=== PATIENT | female | born 1960 | race Caucasian/White ===

== ENCOUNTER 2021-06-08 12:20 | Inpatient (IN) | payer OTHER ==
--- NOTE | 2021-06-08 13:41 | RAD REPORT ---
EXAM DESCRIPTION: CT - Head Brain Wo Cont - 06/08/2021 1:24 pm CLINICAL HISTORY: Alteration of awareness/confusion COMPARISON: None TECHNIQUE: Computed axial tomography of the head was obtained. IV contrast was not requested. All CT scans are performed using dose optimization technique as appropriate and may include automated exposure control or mA/KV adjustment according to patient size. FINDINGS: An intracranial bleed is not seen . The ventricles are normal in caliber. No extra-axial fluid collection is noted. 3 millimeter low-density area right caudate. 5 millimeter low-density area left domitila Mild to low-density areas within periventricular, deep and subcortical white matter likely represent ischemic changes secondary to small vessel disease. Fluid within the sinuses/ mastoids is not seen. IMPRESSION: 3 mm low-density area right caudate likely old lacunar infarction. It has more of a senior sales associate darren than acute appearance. 5 millimeter low-density area left domitila has the appearance of an old lacunar infarction If patient continues have symptoms to suggest acute intracranial pathology then MRI brain would be re commended.
--- NOTE | 2021-06-08 15:42 | ER ---
Nurse's Notes [facility] Name: Tammie Cassidy Age: 60 yrs Sex: Female : 1960 Arrival Date: 06/08/2021 Time: 12:21 Bed 14 Private MD: Keturah Eaton Diagnosis: Lacunar infarct right caudate and left domitila, weakness left upper and lower extremity, greater on the upper extremity Presentation: 06/08 12:52 Chief complaint: Patient states: L sided weakness that began 3 days ago. Coronavirus ss screen: Client denies travel out of the [place] in the last 14 days. Ebola Screen: Patient denies exposure to infectious person. Patient denies travel to an Ebola-affected area in the 21 days before illness onset. Initial Sepsis Screen: Does the patient meet any 2 criteria? No. Patient's initial sepsis screen is negative. Does the patient have a suspected source of infection? No. Patient's initial sepsis screen is negative. Risk Assessment: Do you want to hurt yourself or someone else? Patient reports no desire to harm self or others. Onset of symptoms was May 2021. 12:52 Method Of Arrival: Wheelchair ss 12:52 Acuity: JHONY 2 ss Triage Assessment: 19:34 General: Appears in no apparent distress. comfortable. mr2 Historical: - Allergies: 12:57 Rocephin; ss - PMHx: 12:57 Hypertensive disorder; ss - Immunization history:: Client reports receiving the 1st dose of the Covid vaccine. - Social history:: Smoking status: Patient reports the use of cigarette tobacco products, smokes one pack cigarettes per day. Screenin:34 Abuse screen: Denies threats or abuse. Nutritional screening: No deficits noted. vg1 Tuberculosis screening: No symptoms or risk factors identified. Fall Risk No fall in past 12 months (0 pts). No secondary diagnosis (0 pts). IV access (20 points). Ambulatory Aid- None/Bed Rest/Nurse Assist (0 pts). Gait- Normal/Bed Rest/Wheelchair (0 pts) Mental Status- Oriented to own ability (0 pts). Total Lockwood Fall Scale indicates No Risk (0-24 pts). Assessment: 16:00 General: Appears in no apparent distress. uncomfortable, Behavior is calm, cooperative. vg1 Pain: Complains of pain in head and neck Pain currently is 8 out of 10 on a pain scale. Neuro: Level of Consciousness is awake, alert, obeys commands, Oriented to person, place, time, situation, Reports headache photophobia Denies weakness blurred vision dizziness, numbness. Cardiovascular: Patient's skin is warm and dry. Respiratory: Airway is patent Respiratory effort is even, unlabored. GI: Patient currently denies diarrhea, nausea, vomiting. : No signs and/or symptoms were reported regarding the genitourinary system. EENT: No signs and/or symptoms were reported regarding the EENT system. Derm: Skin is intact, is healthy with good turgor. Musculoskeletal: Circulation, motion, and sensation intact. 16:29 Reassessment: received VO from Dr Park to administer Points 10 mg PO x1. vg1 17:30 Reassessment: Patient appears in no apparent distress at this time. No changes from vg1 previously documented assessment. Patient and/or family updated on plan of care and expected duration. Pain level reassessed. Patient is alert, oriented x 3, equal unlabored respirations, skin warm/dry/pink. 17:50 Reassessment: Pt c/o of pain neck pain 04/22, Provider notified. vg1 18:04 Reassessment: Received VO from DR Park to administer Morphine 4 mg IVP x1 and Zofran vg1 IVP x1. Vital Signs: 12:52 Pulse 71; Temp 97.7(TE); Pulse Ox 99% ; ss 12:58 BP 219 / 104; ss 12:59 Resp 16; Weight 81.65 kg; Height 5 ft. 5 in. (165.10 cm); ss 16:30 BP 214 / 96; Pulse 59; Resp 16; Pulse Ox 100% ; vg1 16:51 BP 241 / 111; Pulse 55; Resp 20; Pulse Ox 100% ; mh5 18:05 BP 207 / 118; Pulse 55; Resp 15; Pulse Ox 100% ; vg1 18:30 BP 206 / 108; Pulse 58; Resp 20; Pulse Ox 99% ; vg1 19:31 BP 174 / 93; Pulse 57; Resp 17; Pulse Ox 98% on R/A; mr2 12:59 Body Mass Index 29.95 (81.65 kg, 165.10 cm) ED Course: 12:21 Patient arrived in ED. as 12:21 Keturah Eaton is Private Physician. as 12:57 Triage completed. ss 12:57 Arm band placed on right wrist. ss 13:23 CT Head Brain wo Cont In Process Unspecified. EDMS 15:00 Bora Park MD is Attending Physician. kdr 15:40 Ubaldo Owens MD is Hospitalizing Provider. kdr 15:47 Rhiannon Fritz RN is Primary Nurse. vg1 16:20 Initial lab(s) drawn, by me, sent to lab. Inserted saline lock: 20 gauge in right vg1 antecubital area, using aseptic technique. Blood collected. 16:34 Patient has correct armband on for positive identification. Placed in gown. Bed in low vg1 position. Call light in reach. Side rails up X 1. Adult w/ patient. 16:34 No provider procedures requiring assistance completed. vg1 16:49 Chem 7 Sent. mh5 16:50 CBC with Diff Sent. mh5 17:15 Head angio In Process Unspecified. EDMS 19:14 Report given to MELVIN RODRIGUEZ. vg1 21:38 Patient admitted, IV remains in place. mr2 Administered Medications: 16:08 Drug: Aspirin 81 mg Route: PO; vg1 18:40 Follow up: Response: No adverse reaction vg1 16:08 Drug: PlaVIX (clopidogrel) 75 mg Route: PO; vg1 18:40 Follow up: Response: No adverse reaction vg1 16:08 Not Given (not available in hospital per pharmacyy): lovastatin 40 mg PO once vg1 16:08 Drug: cloNIDine 0.1 mg Route: PO; vg1 18:40 Follow up: Response: Blood pressure is lowered vg1 16:09 Drug: Lipitor (atorvastatin) 20 mg Route: PO; vg1 18:40 Follow up: Response: Blood pressure is lowered vg1 16:31 Drug: Points (HYDROcodone-acetaminophen) 10 mg-325 mg 1 tabs Route: PO; vg1 18:39 Follow up: Response: No adverse reaction; No change in condition vg1 18:40 Drug: Zofran (Ondansetron) 4 mg Route: IVP; Site: right antecubital; vg1 18:42 Drug: morphine 4 mg Route: IVP; Site: right antecubital; vg1 Outcome: 15:42 Decision to Hospitalize by Provider. kdr 21:38 Admitted to Med/surg mr2 21:38 Condition: stable 21:38 Instructed on the need for admit. 22:06 Patient left the ED. mr2 Signatures: Dispatcher [employer] EDMS Bora Park MD MD kdr Martinez, Amelia as Smirch, Shelby, RN RN ss Martinez, Maria Rhiannon Waggoner RN RN vg1 Melvin Orozco RN RN mr2
--- NOTE | 2021-06-08 15:42 | EDPHYS ---
Physician Documentation [facility] Name: Tammie Cassidy Age: 60 yrs Sex: Female : 1960 Arrival Date: 06/08/2021 Time: 12:21 Bed 14 Private MD: Keturah Eaton ED Physician Bora Park HPI: 06/08 15:01 This 60 yrs old Female presents to ER via Wheelchair with complaints of Numbness - l kdr side. 15:01 The patient's problem is reported as weakness, in the left upper extremity, in the left kdr lower extremity. Onset: The symptoms/episode began/occurred suddenly, 3 day(s) ago. Duration: This was a single incident, The episode is continuous, the symptoms became persistent. Context: symptoms became apparent at an unknown time, occurred at home, occurred while the patient was. 15:42 The symptoms are alleviated by nothing. The symptoms are aggravated by. Associated kdr signs and symptoms: The patient has no apparent associated signs or symptoms. Severity of symptoms: At their worst the symptoms were mild in the emergency department the symptoms are unchanged. Patient's baseline: Neuro: alert and fully oriented, Motor: no deficits, Ambulation: walks without assistance, Speech: normal, The patient has a previous history of CVA. The patient has not experienced similar symptoms in the past. The patient has not recently seen a physician. Patient states she awoke about 3 days ago and shortly thereafter she noted left-sided weakness and difficulty standing. She had no problems with her vision or mentation. She also denies any difficulty swallowing. In discussions with her daughter, the patient may have had some slight weakness when she woke so exact onset is unclear.. Historical: - Allergies: 12:57 Rocephin; ss - PMHx: 12:57 Hypertensive disorder; ss - Immunization history:: Client reports receiving the 1st dose of the Covid vaccine. - Social history:: Smoking status: Patient reports the use of cigarette tobacco products, smokes one pack cigarettes per day. ROS: 15:42 Constitutional: Negative for fever, chills, and weight loss, Eyes: Negative for injury, kdr pain, redness, and discharge, Neck: Negative for injury, pain, and swelling, Cardiovascular: Negative for chest pain, palpitations, and edema, Respiratory: Negative for shortness of breath, cough, wheezing, and pleuritic chest pain, Abdomen/GI: Negative for abdominal pain, nausea, vomiting, diarrhea, and constipation, Back: Negative for injury and pain, : Negative for injury, bleeding, discharge, and swelling, MS/Extremity: Negative for injury and deformity, Skin: Negative for injury, rash, and discoloration, Psych: Negative for depression, anxiety, suicide ideation, homicidal ideation, and hallucinations, Allergy/Immunology: Negative for hives, rash, and allergies, Endocrine: Negative for neck swelling, polydipsia, polyuria, polyphagia, and marked weight changes, Hematologic/Lymphatic: Negative for swollen nodes, abnormal bleeding, and unusual bruising. 15:42 Neuro: Positive for weakness, Left upper and lower extremity weakness some slight sensation diminishment but otherwise intact. Exam: 15:42 Radiologist reports: Lacunar infarcts in both the right caudate and left domitila kdr approximately 3 mm. All have the most likely appearance of old infarct 15:42 Constitutional: This is a well developed, well nourished patient who is awake, alert, and in no acute distress. Head/Face: Normocephalic, atraumatic. Eyes: Pupils equal round and reactive to light, extra-ocular motions intact. Lids and lashes normal. Conjunctiva and sclera are non-icteric and not injected. Cornea within normal limits. Periorbital areas with no swelling, redness, or edema. Neck: Trachea midline, no thyromegaly or masses palpated, and no cervical lymphadenopathy. Supple, full range of motion without nuchal rigidity, or vertebral point tenderness. No Meningismus. Chest/axilla: Normal chest wall appearance and motion. Nontender with no deformity. No lesions are appreciated. Cardiovascular: Regular rate and rhythm with a normal S1 and S2. No gallops, murmurs, or rubs. Normal PMI, no JVD. No pulse deficits. Respiratory: Lungs have equal breath sounds bilaterally, clear to auscultation and percussion. No rales, rhonchi or wheezes noted. No increased work of breathing, no retractions or nasal flaring. Abdomen/GI: Soft, non-tender, with normal bowel sounds. No distension or tympany. No guarding or rebound. No evidence of tenderness throughout. Back: No spinal tenderness. No costovertebral tenderness. Full range of motion. Skin: Warm, dry with normal turgor. Normal color with no rashes, no lesions, and no evidence of cellulitis. MS/ Extremity: Pulses equal, no cyanosis. Neurovascular intact. Full, normal range of motion. Neuro: Awake and alert, GCS 15, oriented to person, place, time, and situation. Cranial nerves II-XII grossly intact. Motor strength 5/5 in all extremities. Sensory grossly intact. Cerebellar exam normal. Normal gait. Psych: Awake, alert, with orientation to person, place and time. Behavior, mood, and affect are within normal limits. 19:01 ECG was reviewed by the Attending Physician. kdr Vital Signs: 12:52 Pulse 71; Temp 97.7(TE); Pulse Ox 99% ; ss 12:58 BP 219 / 104; ss 12:59 Resp 16; Weight 81.65 kg; Height 5 ft. 5 in. (165.10 cm); ss 16:30 BP 214 / 96; Pulse 59; Resp 16; Pulse Ox 100% ; vg1 16:51 BP 241 / 111; Pulse 55; Resp 20; Pulse Ox 100% ; mh5 18:05 BP 207 / 118; Pulse 55; Resp 15; Pulse Ox 100% ; vg1 18:30 BP 206 / 108; Pulse 58; Resp 20; Pulse Ox 99% ; vg1 19:31 BP 174 / 93; Pulse 57; Resp 17; Pulse Ox 98% on R/A; mr2 12:59 Body Mass Index 29.95 (81.65 kg, 165.10 cm) ss MDM: 15:42 Patient medically screened. kdr 15:45 Data reviewed: vital signs, nurses notes, lab test result(s), radiologic studies. [facility] 06/08 15:17 Order name: CBC with Diff kdr 06/08 15:17 Order name: Chem 7 kdr 06/08 15:17 Order name: PT-INR; Complete Time: 19: kdr 06/08 15:18 Order name: CBC with Automated Diff; Complete Time: 19: EDMS 06/08 15:18 Order name: Basic Metabolic Panel; Complete Time: 19: EDMS 06/08 15:31 Order name: SARS-COV-2 RT PCR (Document "Date of Onset" if Symptomatic); Complete Time: em1 :06/08 12:59 Order name: CT Head Brain wo Cont; Complete Time: 15:00 ss 06/08 15:17 Order name: Head angio; Complete Time: 19:01 EDMS 06/08 17:52 Order name: CONS Physician Consult EDMS EC: Rate is 59 beats/min. Rhythm is regular, Sinus bradycardia with No ectopy. QRS [place] is kdr Normal. [place] interval is normal. QRS interval is normal. QT interval is normal. Clinical impression: Sinus bradycardia. Administered Medications: 16:08 Drug: Aspirin 81 mg Route: PO; vg1 18:40 Follow up: Response: No adverse reaction vg1 16:08 Drug: PlaVIX (clopidogrel) 75 mg Route: PO; vg1 18:40 Follow up: Response: No adverse reaction vg1 16:08 Not Given (not available in hospital per pharmacyy): lovastatin 40 mg PO once vg1 16:08 Drug: cloNIDine 0.1 mg Route: PO; vg1 18:40 Follow up: Response: Blood pressure is lowered vg1 16:09 Drug: Lipitor (atorvastatin) 20 mg Route: PO; vg1 18:40 Follow up: Response: Blood pressure is lowered vg1 16:31 Drug: [place] (HYDROcodone-acetaminophen) 10 mg-325 mg 1 tabs Route: PO; vg1 18:39 Follow up: Response: No adverse reaction; No change in condition vg1 18:40 Drug: Zofran (Ondansetron) 4 mg Route: IVP; Site: right antecubital; vg1 18:42 Drug: morphine 4 mg Route: IVP; Site: right antecubital; vg1 Disposition Summary: 06/08/21 15:42 Hospitalization Ordered Hospitalization Status: Inpatient Admission kdr Provider: Ubaldo Owens Location: Telemetry/MedSurg (Inpatient) kdr Condition: Fair kdr Problem: new kdr Symptoms: have improved kdr Bed/Room Type: Standard kdr Room Assignment: 214(06/08/21 20:08) Diagnosis - Lacunar infarct right caudate and left domitila, weakness left upper and lower kdr extremity, greater on the upper extremity Forms: - Medication Reconciliation Form kdr - SBAR form kdr Signatures: Dispatcher [employer] EDMS Bora Park MD MD kdr Tiana Nunes RN RN ss Adelaida Fritz RN RN Rhiannon Fritz RN RN vg1 Corrections: (The following items were deleted from the chart) 20:08 15:42 kdr cg
[2021-06-08] MEDS ORDERED: ASPIRIN 81 MG CHEWABLE TABLET ONE (15:54)
[2021-06-08] MEDS ORDERED: CLOPIDOGREL 75 MG TABLET ONE (15:55)
[2021-06-08] MEDS ORDERED: cloNIDine HCL 0.1 MG TAB ONE (15:57)
[2021-06-08] MEDS ORDERED: ATORVASTATIN 20 MG TAB ONE (16:03)
[2021-06-08] MEDS ORDERED: HYDROCODONE/APAP 10/325 TAB ONE (16:27)
[2021-06-08 16:31] LABS: Absolute Lymphocytes (CBC) 2.7 K/uL (0.7-4.9); Basophils % 0.7 % (0-1.3); Hematocrit 47.9 % (36.0-45.0); Lymphocytes % 19.9 % (15.3-44.8); MPV 8.5 fL (7.6-11.3); RBC Red Blood Cell Count 5.77 M/uL (3.86-4.86)
[2021-06-08 16:33] LABS: Protime INR 1.05
[2021-06-08 16:45] LABS: Potassium 3.9 mmol/L (3.5-5.1)
--- NOTE | 2021-06-08 17:31 | RAD REPORT ---
EXAM DESCRIPTION: CTHead angio06/08/2021 5:15 pm CLINICAL HISTORY: Left extremity weakness COMPARISON: None TECHNIQUE: CT angiogram of the head was obtained. 3D MIPS reconstruction performed. All CT scans are performed using dose optimization technique as appropriate and may include automated exposure control or mA/KV adjustment according to patient size. FINDINGS: Mild calcified plaque within the distal internal carotid arteries. The basilar,, anterior cerebral, middle cerebral and posterior cerebral arteries are normal caliber. An aneurysm is not seen. origin left posterior cerebral artery A significant stenosis is not noted. IMPRESSION: No acute abnormality is displayed
--- NOTE | 2021-06-08 17:49 | P.HP ---
Certification for Inpatient Patient admitted to: Inpatient With expected LOS: >2 Midnights Practitioner: I am a practitioner with admitting privileges, knowledge of patient current condition, hospital course, and medical plan of care. Services: Services provided to patient in accordance with Admission requirements found in Title 42 Section 412.3 of the Code of Federal Regulations Patient History Date of Service: 06/08/21 Reason for admission: Left arm and leg weakness History of Present Illness: 60-year-old female, PMH: Hypertension, degenerative disc disease, nicotine depen dence, prior CVA (2007) with no residual effects Presents to ED due to 3 days of left upper and lower extremity weakness. Patient states she woke up, went to use the bathroom, and also known low toilet her left side got severely weak, as though somebody flipped a switch. She reports otherwise been in usual state of health up until this event. She denies any other symptoms at that time or since then. No vision changes, no hearing changes, no numbness/tingling, no difficulty speaking, no difficulty urinating or change in bowel habits. She reports having a stroke in 2007 and had numbness in the left lower part of her body, which eventually resolved after several months. She takes daily aspirin 81 mg, metoprolol 50 mg twice daily, and continues to smoke 1 pack/day. Yesterday she began to have moderate cervical spine pain and tenderness. Denies nuchal rigidity, no fevers, no chills. She states she has been leaning towards the left side when walking and had significant incoordination of her left hand. Work-up in the ED notable for a mild leukocytosis, CT noted what appears to be older infarcts. Unfortunately patient unable to get an MRI today due to staffing/holiday. Allergies ceftriaxone sodium [From Rocephin] Allergy (Severe, Verified 02/06/12 13:00) anaphalaxis - Past Medical/Surgical History -: Hypertension -: Degenerative disc disease, back spurs -: Prior CVA -: Nicotine dependence -: Cholecystectomy -: Appendectomy -: x2 -: Hysterectomy - Family History Family History: Reviewed- Non-Contributory - Social History Smoking Status: Current every day smoker Alcohol use: No Place of Residence: Home Review of Systems 10-point ROS is otherwise unremarkable Physical Examination - Physical Exam General: Alert, In no apparent distress, Oriented x3 HEENT: PERRLA, EOMI, Sclerae nonicteric Neck: Supple, No LAD Respiratory: Clear to auscultation bilaterally, Normal air movement Cardiovascular: No edema, Regular rate/rhythm Gastrointestinal: Soft and benign, Non-distended, No tenderness Musculoskeletal: Tenderness (Tenderness along cervical paraspinal muscles) Integumentary: No rashes, No significant lesion Neurological: Normal speech, Sensation intact, Cranial nerves 3-12 intact, Normal affect, Abnormal strength (4/5 strength in left upper extremity and lower extremity, with incoordination) - Studies Laboratory Data (last 24 hrs) 06/08/21 16:20: PT 12.1, INR 1.05 06/08/21 16:20: Sodium 144, Potassium 3.9, BUN 14, Creatinine 0.92, Glucose 107 H 06/08/21 16:20: WBC 13.50 H, Hgb 16.0 H, Hct 47.9 H, Plt Count 310 Assessment and Plan - Advance Directives Does patient have a Living Will: No Does patient have a Durable POA for Healthcare: No Physician Review Additional Text: Problem list Left upper and lower extremity weakness, suspect acute CVA History of prior CVA, with no residual deficits Hypertension Nicotine dependence Degenerative disc disease with chronic back pain CT showing old infarcts, but unclear exactly on the age CTA negative Neurology consulted, initially recommended transfer as we cannot get an MRI for several days. Neurologist at tertiary care center stated would just repeat a CT in the next few days, would not change management director, so would not accept transfer. Aspirin, Plavix, statin, folic acid ordered Monitor and treat patient's hypertension as needed, allow for some permissive hypertension. But on presentation patient was noted to have a blood pressure 219/104 Physical therapy Dispo: Anticipate discharge in 2-3 days, may benefit from inpatient rehab, will definitely benefit from aggressive physical therapy Time Spent Managing Pts Care (In Minutes): 60
[2021-06-08] MEDS ORDERED: MORPHINE 4 MG/ML SYR ONE (17:56)
[2021-06-08] MEDS ORDERED: ONDANSETRON 4 MG/2 ML VIAL ONE (17:56)
--- NOTE | 2021-06-08 19:48 | CON ---
Reason For Consultation: Consultation called because of stroke. History Of Present Illness: Ms. Cassidy is a 60-year-old right-handed patient with uncont rolled hypertension and multiple prior nuclear strokes, who comes to [facility] with 3 days of left-sided incoordination and weakness involving the face, arm, leg. The patient reportedly was o n aspirin when the event occurred. She did not immediately seek medical attention. At [facility], her head CT scan identified old lacunar infarcts 3 mm in size in the right caudate and a 5 mm in the left domitila. There was no apparent acute appearing stroke. CT angiogram of the head showed no abnormalities in the basilar, anterior cerebral, middle cerebral, posterior cerebral arteries, and t here was a origin of the left posterior cerebral artery. Laboratory studies showed a possible dehydration with elevated hemoglobin, hematocrit, and RBCs and white blood cells slightly elevated at 13.5. Coagulation panel was normal. Chloride elevated at 110, glucose 107. Sodium, potassium, car bon dioxide, BUN all normal. Creatinine 0.92. COVID-19 test was negative. She reportedly had COVID in the past. Past Medical History: As noted. Family History: Not contributory. Allergies: CEFUROXIME. Medications: Supposedly aspirin at home, but not on high dose statin. Review of Systems: Aside from mentioned above, no recent fevers, chills, nausea, vomiting, myalgias, arthralgias, headac he, weight change, rash, or psychiatric issues or gastrointestinal or genitourinary issues. Physical Examination: Vital Signs: Blood pressure is elevated at 219/104, respiratory rate 16, pulse 71, temperature 97.9, oxygen saturation 99%. Height is 5 feet 5 inches, weight 81.65 kg. General: Ms. Cassidy is resting in bed. She is in no significant distress. HEENT: She is normocephalic, atraumatic. Sclerae anicteric. Oropharynx is pink and moist. Neck: Supple. Chest: Clear. Heart: Regular. Extremities: Show no significant clubbing, cyanosis, or edema. Neurologic: Alert and oriented to person, place, time, and situation. No expressive receptive aphas ias. In terms of cranial nerves, the face is symmetric with equal excursions and smiling. Sensation intact in V1, V2, V3. No obvious deficits on cranial nerve or motor examination. She has dysmetria in the left upper extremity and some dysdiadochokinesis in the left hand in terms of rapid alternati ng movements and fine finger movements. She does have weakness 4/5 proximally and distally in the le ft upper and lower extremities. In the right upper and lower extremity, 5/5. Sensation intact on th e left and right upper extremity. She does have a tendency to fall to the left with ambulation. Assessment: Ms. Cassidy is a 60-year-old patient with uncontrolled hypertension and multiple lacuna r infarcts on aspirin and mildly dehydrated. Plan: 1.She should be evaluated by Physical Therapy for stratification of her rehabilitation, whether inpa tient or outpatient depending on the degree to which she requires assistance for all ADLs, gait, and coordination and possible speech issues. 2.Continue aspirin 81 mg, folate 1 mg daily, Plavix 75 mg daily. 3.We will obtain lipid panel and if LDL is greater than 70, high-dose statin. 4.She needs gingerly decreasing of her blood pressures to get to below 180 for the next few days, th en slowly down towards the 150s, 140s, and 130s, ideally 120/80. She will be followed while in hospital and she should follow up with Dr. Holguin 1 month after discharge. ERNA/NICO Voice ID: [id number] Report ID: [id number]
[2021-06-08 22:23] VITALS: BMI 31.5
[2021-06-08] MEDS ORDERED: ACETAMINOPHEN 500 MG TAB PO PRN (22:58)
[2021-06-08] MEDS ORDERED: ATORVASTATIN 40 MG TAB PO SCH (22:58)
[2021-06-08] MEDS ORDERED: ONDANSETRON 4 MG/2 ML VIAL IV PRN (22:58)
[2021-06-08] MEDS: MORPHINE 2 MG/ML SYR IV PRN (23:18)
[2021-06-08] MEDS: NA CHLORIDE 0.9% 1,000 ML IV SCH (23:29)
[2021-06-08] MEDS: HYDRALAZINE HCL 20 MG/ML VIAL IV PRN (23:36)
[2021-06-09 04:11] LABS: Urine Appearance Clear (Clear); Urine Bilirubin Negative (Negative); Urine Blood 1+ (Negative); Urine Color Yellow (Yellow); Urine Glucose Negative (Negative); Urine Protein Negative (Negative); Urine Urobilinogen 0.2 mg/dL (0.2-1.0); Urine pH 5.5 (5.0-7.0)
[2021-06-09 04:12] LABS: Urine Microscopic Reflex ORDER UMIC
[2021-06-09 04:15] LABS: Urine Bacteria <20 /HPF (<20)
[2021-06-09] MEDS: MORPHINE 2 MG/ML SYR IV PRN ×2 (05:25→11:23)
[2021-06-09] MEDS ORDERED: TRAMADOL HCL 50 MG TAB PO PRN (06:23)
--- NOTE | 2021-06-09 06:26 | P.PN ---
Date of Service: 06/09/21 Subjective: No acute events overnight. Patient reports strength is improved, but still feels like her arm and leg have a "mind of your home", was incoordination Patient very anxious, frustrated with these deficits ROS: 10 point ROS as noted above, otherwise negative Physical exam General: Alert, oriented x3 HEENT: PERRLA, EOMI, Sclerae nonicteric Neck: Supple, No LAD Respiratory: Clear to auscultation bilaterally, Normal air movement Cardiovascular: No edema, Regular rate/rhythm Gastrointestinal: Soft and benign, Non-distended, No tenderness Integumentary: No rashes, No significant lesion Neurological: Normal speech, Sensation intact, Cranial nerves 3-12 intact, minimal weakness and left upper extremity, 4+/5 str in LLE, worse incoordination of lower extremity compared to left upper extremity Problem List Left upper and lower extremity weakness and incoordination, suspect acute CVA History of prior CVA, with no residual deficits Hypertension Nicotine dependence Degenerative disc disease with chronic back pain CT showing old infarcts, but unclear exactly on the age CTA negative Neurology consulted, initially recommended transfer as we cannot get an MRI for several days. Neurologist at tertiary care center stated would just repeat a CT in the next few days, would not oil changer, so would not accept transfer. Aspirin, Plavix, statin, folic acid ordered Significantly hypertensive in the ED, allowing for some permissive hypertension, gradual decrease of her blood pressure Slowly uptitrate medication, systolic 160s today Physical therapy and occupational therapy consulted Repeat CT 24 hours after initial Dispo: Anticipate discharge 1-2 days, may benefit from inpatient rehab versus outpatient Patient currently states that she may prefer outpatient services depending on how she does Time Spent Managing Pts Care (In Minutes): 35
[2021-06-09 06:30] LABS: Absolute Lymphocytes (CBC) 3.1 K/uL (0.7-4.9); Basophils % 0.6 % (0-1.3); Hematocrit 42.9 % (36.0-45.0); Lymphocytes % 25.9 % (15.3-44.8); MPV 8.9 fL (7.6-11.3); RBC Red Blood Cell Count 5.16 M/uL (3.86-4.86)
[2021-06-09 06:58] LABS: Albumin 3.2 g/dL (3.4-5.0); Bilirubin Total 0.6 mg/dL (0.2-1.0); Magnesium 2.4 mg/dL (1.8-2.4); Potassium 3.6 mmol/L (3.5-5.1); Protein, Total 6.5 g/dL (6.4-8.2)
[2021-06-09] MEDS: HYDRALAZINE HCL 20 MG/ML VIAL IV PRN ×2 (08:00→16:11)
[2021-06-09] MEDS: NA CHLORIDE 0.9% 1,000 ML IV SCH (08:58)
[2021-06-09] MEDS ORDERED: CLOPIDOGREL 75 MG TABLET PO SCH (09:00)
[2021-06-09] MEDS ORDERED: ASPIRIN EC 81 MG TAB PO SCH (09:00)
[2021-06-09] MEDS ORDERED: FOLIC ACID 1 MG TABLET PO SCH (09:00)
[2021-06-09] MEDS ORDERED: lisinopriL 10 MG TAB PO SCH (09:00)
[2021-06-09] MEDS ORDERED: INFLUENZA VACCINE (for 6+ mo) 0.5 ML DOSE IMVAC ONE (09:00)
[2021-06-09 09:41] VITALS: O2SAT 96
[2021-06-09 16:06] VITALS: BP 169/87; TEMP 97.6
--- NOTE | 2021-06-09 17:02 | P.DS ---
Admission Date: 06/08/21 Discharge Date: 06/09/21 Disposition: AMA-LEFT AGAINST MEDICAL ADVIC Discharge Condition: FAIR Reason for Admission: Left arm and leg weakness Consultations: Neurology - Dr. Holguin Procedures: CT head (06/08): IMPRESSION: 3 mm low-density area right caudate likely old lacunar infarction. It has more of a chronic than acute appearance. 5 millimeter low-density area left domitila has the appearance of an old lacunar infarction CTA head (06/08): FINDINGS: Mild calcified plaque within the distal internal carotid arteries. The basilar,, anterior cerebral, middle cerebral and posterior cerebral arteries are normal caliber. An aneurysm is not seen. origin left posterior cerebral artery A significant stenosis is not noted. IMPRESSION: No acute abnormality is displayed Problem List Left upper and lower extremity weakness and incoordination, suspect acute CVA History of prior CVA, with no residual deficits Hypertension Nicotine dependence Degenerative disc disease with chronic back pain Brief History of Present Illness: 60-year-old female, PMH: Hypertension, degenerative disc disease, nicotine dependence, prior CVA (2007) with no residual effects Presents to ED due to 3 days of left upper and lower extremity weakness. Patient states she woke up, went to use the bathroom, and also known low toilet her left side got severely weak, as though somebody flipped a switch. She reports otherwise been in usual state of health up until this event. She denies any other symptoms at that time or since then. No vision changes, no hearing changes, no numbness/tingling, no difficulty speaking, no difficulty urinating or change in bowel habits. She reports having a stroke in 2007 and had numbness in the left lower part of her body, which eventually resolved after several months. She takes daily aspirin 81 mg, metoprolol 50 mg twice daily, and continues to smoke 1 pack/day. Yesterday she began to have moderate cervical spine pain and tenderness. Denies nuchal rigidity, no fevers, no chills. She states she has been leaning towards the left side when walking and had significant incoordination of her left hand. Work-up in the ED notable for a mild leukocytosis, CT noted what appears to be older infarcts. Unfortunately patient unable to get an MRI today due to staffing/holiday. Hospital Course: Patient was treated for possible acute CVA with aspirin, statin, Plavix, folic acid. She was started on lisinopril low-dose with improvement of her hypertension, while allowing for some permissive hypertension. She was evaluated by physical therapy and was noted to have an unsteady gait, incoordination of her left sided extremities. She seemed to do okay with a walker. Patient was to undergo repeat CT head [address], etc. evaluate for any signs of ischemic changes, and to rule out any hemorrhagic conversion. Patient became very anxious and frustrated with her new deficits. She became very upset, stated she did not want to be in the hospital anymore and was going home. Spoke to the patient at length, explained that we recommend repeating a CT, and allow us to set up physical therapy, and further improve her blood pressure. Explained that leaving early AGAINST MEDICAL ADVICE would increase her risk for further episodes, and even possibly . Patient expressed understanding and left the hospital AGAINST MEDICAL ADVICE. Prescriptions for these new medications were still sent to her pharmacy, she was advised to call neurology's office for follow-up and for assistance in setting up up outpatient physical therapy. Vital Signs/Physical Exam: Physical exam General: Alert, oriented x3, anxious/frustrated HEENT: PERRLA, EOMI, Sclerae nonicteric Neck: Supple, No LAD Respiratory: Clear to auscultation bilaterally, Normal air movement Cardiovascular: No edema, Regular rate/rhythm Neurological: Normal speech, Sensation intact, Cranial nerves 3-12 intact, minimal weakness and left upper extremity, 4+/5 str in LLE, worse incoordination of lower extremity compared to left upper extremity Temp Pulse Resp BP Pulse Ox 97.6 F 63 19 169/87 H 99 06/09/21 16:00 06/09/21 16:00 06/09/21 16:00 06/09/21 16:00 06/09/21 16:00 Laboratory Data at Discharge: WBC 11.90 K/uL (4.3-10.9) H 06/09/21 05:42 Hgb 14.1 g/dL (12.0-15.0) 06/09/21 05:42 Hct 42.9 % (36.0-45.0) 06/09/21 05:42 Plt Count 261 K/uL (152-406) 06/09/21 05:42 PT 12.1 SECONDS (9.5-12.5) 06/08/21 16:20 INR 1.05 06/08/21 16:20 Sodium 143 mmol/L (136-145) 06/09/21 05:42 Potassium 3.6 mmol/L (3.5-5.1) 06/09/21 05:42 BUN 13 mg/dL (7-18) 06/09/21 05:42 Creatinine 0.76 mg/dL (0.55-1.3) 06/09/21 05:42 Glucose 139 mg/dL (74-106) H 06/09/21 05:42 Magnesium 2.4 mg/dL (1.8-2.4) 06/09/21 05:42 Total Bilirubin 0.6 mg/dL (0.2-1.0) 06/09/21 05:42 AST 13 U/L (15-37) L 06/09/21 05:42 ALT 33 U/L (12-78) 06/09/21 05:42 Alkaline Phosphatase 90 U/L (45-117) 06/09/21 05:42 Triglycerides 80 mg/dL (<150) 06/09/21 05:42 Cholesterol 166 mg/dL (<200) 06/09/21 05:42 HDL Cholesterol 39 mg/dL (40-60) L 06/09/21 05:42 Cholesterol/HDL Ratio 4.26 06/09/21 05:42 Home Medications: Metoprolol Tartrate [Lopressor*] 1 tab PO BID 06/08/21 Aspirin [Aspirin EC 81 MG] 81 mg PO DAILY 30 Days #30 tablet. 06/09/21 Atorvastatin Calcium [Lipitor] 40 mg PO BEDTIME 30 Days #30 tab 06/09/21 Clopidogrel Bisulfate [Plavix*] 75 mg PO DAILY 30 Days #30 tablet 06/09/21 Folic Acid 1 mg PO DAILY 30 Days #30 tablet 06/09/21 lisinopriL [Prinivil*] 10 mg PO DAILY 30 Days #30 tab 06/09/21 New Medications: Aspirin [Aspirin EC 81 MG] 81 mg PO DAILY 30 Days #30 tablet. Folic Acid 1 mg PO DAILY 30 Days #30 tablet Atorvastatin Calcium [Lipitor] 40 mg PO BEDTIME 30 Days #30 tab Clopidogrel Bisulfate [Plavix*] 75 mg PO DAILY 30 Days #30 tablet lisinopriL [Prinivil*] 10 mg PO DAILY 30 Days #30 tab Followup: Keturah Eaton MD [Primary Care Provider] - Time spent managing pt's care (in minutes): 45
== END 2021-06-09 17:26 | disposition left against medical advice (07) | DRG 65 ==
LOC: ER 12:20 → ERHOLD 17:50 → 2ND 20:46
PROVIDERS: ADMIT Hospitalist; ATTEND Hospitalist
DX: I63.9 Cerebral infarction, unspecified (principal); G81.94 Hemiplegia, unspecified affecting left nondominant side; R29.701 NIHSS score 1; I10 Essential (primary) hypertension; E86.0 Dehydration; F17.210 Nicotine dependence, cigarettes, uncomplicated; Z86.16 Personal history of COVID-19; Z86.73 Personal history of transient ischemic attack (TIA), and cerebral infarction without residual deficits; Z53.29 Procedure and treatment not carried out because of patient's decision for other reasons; Z20.822 Contact with and (suspected) exposure to COVID-19
CPT/HCPCS: 36415; 70450; 70496; 80048; 80053; 80061; 81003; 81015; 83735; 85025; 85610; 87086; 87088; 93005; 96374; 96375; 97112; 97116; 97161; 97165; 99285; J0360; J2270; J2405; J7030; Q9967; U0003

== ENCOUNTER 2025-03-30 10:56 | Emergency (ER) | payer OTHER ==
[2025-03-30] MEDS ORDERED: ONDANSETRON 4 MG/2 ML VIAL ONE (10:59)
[2025-03-30] MEDS ORDERED: MORPHINE 4 MG/ML SYR ONE (10:59)
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
[2025-03-30 13:51] VITALS: BP 137/92; TEMP 98.3; O2SAT 99
== END 2025-03-30 13:38 | disposition home or self-care (01) ==
LOC: ER 10:56
DX: S20.212A Contusion of left front wall of thorax, initial encounter (principal); R10.84 Generalized abdominal pain; V49.49XA Driver injured in collision with other motor vehicles in traffic accident, initial encounter
CPT/HCPCS: 82565; 70450; 72125; 71260; 74177; 96375; 96374; 99285; Q9967 ×2; J2405